=== PATIENT | male | born 1990 | race Caucasian/White ===

== ENCOUNTER 2018-04-29 11:09 | Inpatient (IN) | payer MEDICAID ==
[~2018-04-29] VITALS: Ht 167.6 cm; Wt 91.6 kg
[2018-04-29 12:58] LABS: BASOPHILS % (AUTO) 0.3 % (0.0-2.0); EOSINOPHILS % (AUTO) 0.6 % (1.0-6.0); HEMATOCRIT 44.6 % (41-53); HEMOGLOBIN 15.5 g/dL (13.5-17.5); LYMPHOCYTES # (AUTO) 1.2 K/uL (1.0-4.8); LYMPHOCYTES % (AUTO) 16.2 % (22.0-44.0); MEAN CORPUSCULAR HEMOGLOBIN 31.4 pg (26.0-34.0); MEAN CORPUSCULAR HGB CONC 34.7 G/dL (31.0-37.0); MEAN CORPUSCULAR VOLUME 91 fL (80-100); MONOCYTES # (AUTO) 0.4 K/uL (0.1-1.0); MONOCYTES % (AUTO) 5.5 % (2.0-9.0); NEUTROPHILS # (AUTO) 5.8 K/uL (1.8-7.7); NEUTROPHILS % (AUTO) 77.4 % (40.0-70.0); PLATELET COUNT (AUTO) 201 K/uL (150-450); RED BLOOD CELL COUNT(AUTO) 4.93 MIL/uL (4.50-5.90); RED CELL DISTRIBUTION WIDTH 12.9 % (11.5-14.5)
[2018-04-29 13:14] LABS: ANION GAP 11 mmol/L (8-16); CALCIUM, TOTAL 8.7 mg/dL (8.8-10.5); CARBON DIOXIDE 26 mmol/L (22-29); CHLORIDE 99 mmol/L (98-107); CREATININE 1.19 mg/dL (0.60-1.30); GLOMERULAR FILTR. RATE CALC > 60 mL/min (>60); GLUCOSE,RANDOM 72 mg/dL (70-110); POTASSIUM 3.7 mmol/L (3.5-5.1); SODIUM SERUM 136 mmol/L (136-145); UREA NITROGEN, BLOOD 10 mg/dL (7-18)
[2018-04-29 13:19] LABS: ALANINE AMINOTRANSFERASE 29 U/L (12-78); ALBUMIN 4.6 g/dL (3.4-5.0); ALKALINE PHOSPHATASE 75 U/L (46-116); ASPARTATE AMINOTRANSFERASE 16 U/L (15-37); BILIRUBIN,TOTAL 0.8 mg/dL (0.1-1.0); TOTAL PROTEIN, SERUM 8.5 g/dL (6.4-8.2)
[2018-04-29] MEDS ORDERED: ZOLPIDEM TARTRATE 10 MG TABLET PO PRN (13:45)
[2018-04-29] MEDS: LORazepam 2 MG TABLET PO PRN (15:20)
[2018-04-29] MEDS: HALOPERIDOL 5 MG TABLET PO PRN (15:20)
[2018-04-29 19:57] VITALS: BP 141/79
[2018-04-30 06:24] VITALS: BP 126/68
[2018-04-30 08:07] VITALS: BP 138/66
[2018-04-30 09:15] LABS: CHOL/HDL RATIO 4.8 (4.2-7.3); FREE T4 (FREE THYROXINE) 1.25 ng/dL (0.76-1.46); THYROID STIMULATING HORMONE 1.61 uIU/mL (0.36-3.74)
[2018-04-30] MEDS ORDERED: MAG HYDROX/AL HYDROX/SIMETH ES 30 ML SUSPENSION UDCUP PO PRN (11:15)
[2018-04-30] MEDS ORDERED: PETROLATUM,WHITE 71 GM JELLY TP PRN (11:15)
[2018-04-30] MEDS ORDERED: ACETAMINOPHEN 325 MG TABLET PO PRN (11:15)
[2018-04-30] MEDS ORDERED: MAGNESIUM HYDROXIDE SUSPENSION 30 ML UDCUP PO PRN (11:15)
[2018-04-30] MEDS ORDERED: DOCUSATE SODIUM 100 MG CAPSULE PO PRN (11:15)
[2018-04-30] MEDS ORDERED: ALBUTEROL SULFATE HFA 90 MCG/PUFF 8 GM INHALER IH PRN (11:15)
[2018-04-30] MEDS ORDERED: IBUPROFEN 400 MG TABLET PO PRN (11:15)
[2018-04-30 16:00] VITALS: BP 123/79
[2018-04-30] MEDS: LORazepam 2 MG TABLET PO PRN (16:56)
[2018-04-30] MEDS: HALOPERIDOL 5 MG TABLET PO PRN (16:56)
[2018-05-01 06:53] VITALS: BP 139/81
[2018-05-01 08:13] VITALS: BP 118/69
[2018-05-01 16:00] VITALS: BP 118/70
[2018-05-01] MEDS: LORazepam 2 MG TABLET PO PRN (17:19)
[2018-05-01] MEDS: HALOPERIDOL 5 MG TABLET PO PRN (17:19)
[2018-05-01] MEDS: ARIPiprazole 10 MG TABLET PO SCH (17:50)
[2018-05-02 06:41] VITALS: BP 113/70
[2018-05-02 08:17] VITALS: BP 136/80
[2018-05-02] MEDS: LORazepam 2 MG TABLET PO PRN (09:39)
[2018-05-02] MEDS: ARIPiprazole 10 MG TABLET PO SCH (09:39)
[2018-05-02] MEDS: HALOPERIDOL 5 MG TABLET PO PRN (09:39)
[2018-05-02 17:12] VITALS: BP 119/68
[2018-05-03 06:35] VITALS: BP 115/78
[2018-05-03 08:06] VITALS: BP 133/77
[2018-05-03] MEDS: ARIPiprazole 10 MG TABLET PO SCH (09:19)
[2018-05-03 16:00] VITALS: BP 138/86
[2018-05-03] MEDS: LORazepam 2 MG TABLET PO PRN (16:32)
[2018-05-04 06:32] VITALS: BP 138/88
[2018-05-04 08:41] VITALS: BP 144/84
[2018-05-04] MEDS: ARIPiprazole 10 MG TABLET PO SCH (09:13)
[2018-05-04] MEDS: LORazepam 2 MG TABLET PO PRN (09:13)
[2018-05-04] MEDS: HALOPERIDOL 5 MG TABLET PO PRN (11:05)
[2018-05-04] MEDS ORDERED: ARIP10TA8 PO (12:34)
== END 2018-05-04 13:30 | disposition home or self-care (01) | DRG 750 ==
LOC: EMS 11:10 → B3A 17:06
PROVIDERS: ADMIT Psychiatry & Neurology Psychiatry; ATTEND Psychiatry & Neurology Psychiatry
DX: F20.0 Paranoid schizophrenia (principal); E83.51 Hypocalcemia; I10 Essential (primary) hypertension; F79 Unspecified intellectual disabilities; R00.0 Tachycardia, unspecified; G47.00 Insomnia, unspecified; F41.9 Anxiety disorder, unspecified; Z79.899 Other long term (current) drug therapy; Z91.5 Personal history of self-harm; Z81.8 Family history of other mental and behavioral disorders
CPT/HCPCS: 84439; 84443; 99285; G0480

== ENCOUNTER 2018-05-10 16:13 | Inpatient (IN) | payer MEDICAID, OTHER ==
[~2018-05-10] VITALS: Ht 167.6 cm; Wt 92.0 kg
[~2018-05-10 16:13] MED LIST: ARIP10TA8 PO
[2018-05-10] MEDS ORDERED: HALOPERIDOL 5 MG TABLET PO ONE (17:30)
[2018-05-10 17:36] LABS: BASOPHILS % (AUTO) 0.5 % (0.0-2.0); EOSINOPHILS % (AUTO) 1.1 % (1.0-6.0); HEMATOCRIT 44.5 % (41-53); HEMOGLOBIN 15.4 g/dL (13.5-17.5); LYMPHOCYTES # (AUTO) 1.8 K/uL (1.0-4.8); LYMPHOCYTES % (AUTO) 22.6 % (22.0-44.0); MEAN CORPUSCULAR HEMOGLOBIN 31.1 pg (26.0-34.0); MEAN CORPUSCULAR HGB CONC 34.6 G/dL (31.0-37.0); MEAN CORPUSCULAR VOLUME 90 fL (80-100); MONOCYTES # (AUTO) 0.6 K/uL (0.1-1.0); MONOCYTES % (AUTO) 7.6 % (2.0-9.0); NEUTROPHILS # (AUTO) 5.3 K/uL (1.8-7.7); NEUTROPHILS % (AUTO) 68.2 % (40.0-70.0); PLATELET COUNT (AUTO) 210 K/uL (150-450); RED BLOOD CELL COUNT(AUTO) 4.94 MIL/uL (4.50-5.90)
[2018-05-10 17:46] LABS: ANION GAP 9 mmol/L (8-16); CALCIUM, TOTAL 9.3 mg/dL (8.8-10.5); CARBON DIOXIDE 25 mmol/L (22-29); CHLORIDE 103 mmol/L (98-107); GLOMERULAR FILTR. RATE CALC > 60 mL/min (>60); GLUCOSE,RANDOM 94 mg/dL (70-110); POTASSIUM 3.7 mmol/L (3.5-5.1); SODIUM SERUM 137 mmol/L (136-145); UREA NITROGEN, BLOOD 8 mg/dL (7-18)
[2018-05-10 18:01] LABS: ALANINE AMINOTRANSFERASE 42 U/L (12-78); ALBUMIN 4.4 g/dL (3.4-5.0); ALKALINE PHOSPHATASE 77 U/L (46-116); ASPARTATE AMINOTRANSFERASE 23 U/L (15-37); BILIRUBIN,TOTAL 0.3 mg/dL (0.1-1.0); TOTAL PROTEIN, SERUM 8.1 g/dL (6.4-8.2)
[2018-05-10 23:04] LABS: APPEARANCE,URINE CLEAR (CLEAR); BILIRUBIN,URINE NEGATIVE (NEGATIVE); GLUCOSE, URINE (UA) NEGATIVE (NEGATIVE); KETONES,URINE NEGATIVE (NEGATIVE); LEUKOCYTE ESTERASE ,URINE NEGATIVE (NEGATIVE); NITRATE,URINE NEGATIVE (NEGATIVE); OCCULT BLOOD,URINE NEGATIVE (NEGATIVE); PH,URINE 6.5 (5.0-8.0); PROTEIN,URINE NEGATIVE (NEGATIVE); UROBILINOGEN,URINE 0.2 mg/dL (<=1.0)
[2018-05-10 23:09] LABS: AMPHET/METH SCREEN,URINE NEGATIVE (NEGATIVE); BARBITURATE SCREEN, URINE NEGATIVE (NEGATIVE); BENZODIAZEPINES SCREEN,URINE NEGATIVE (NEGATIVE); CANNABINOID SCREEN,URINE NEGATIVE (NEGATIVE); COCAINE SCREEN,URINE NEGATIVE (NEGATIVE); METHADONE SCREEN, URINE NEGATIVE (NEGATIVE); OPIATE SCREEN,URINE NEGATIVE (NEGATIVE)
[2018-05-10 23:10] LABS: PHENCYCLIDINE SCREEN,URINE NEGATIVE (NEGATIVE)
[2018-05-11] MEDS: ZOLPIDEM TARTRATE 10 MG TABLET PO PRN ×2 (00:48→20:49)
[2018-05-11] MEDS: LORazepam 2 MG TABLET PO PRN ×2 (00:48→14:52)
[2018-05-11 02:14] VITALS: BP 154/99
[2018-05-11] MEDS ORDERED: CloNIDine HCL 0.1 MG TABLET PO PRN (02:15)
[2018-05-11 08:09] VITALS: BP 139/86
[2018-05-11] MEDS: ARIPiprazole 10 MG TABLET PO SCH (11:12)
[2018-05-11] MEDS ORDERED: DOCUSATE SODIUM 100 MG CAPSULE PO PRN (11:30)
[2018-05-11] MEDS ORDERED: ALBUTEROL SULFATE HFA 90 MCG/PUFF 8 GM INHALER IH PRN (11:30)
[2018-05-11] MEDS ORDERED: LOPERAMIDE HCL 2 MG CAPSULE PO PRN (11:30)
[2018-05-11] MEDS ORDERED: MAG HYDROX/AL HYDROX/SIMETH ES 30 ML SUSPENSION UDCUP PO PRN (11:30)
[2018-05-11] MEDS ORDERED: PETROLATUM,WHITE 71 GM JELLY TP PRN (11:30)
[2018-05-11] MEDS ORDERED: ONDANSETRON HCL 4 MG TABLET PO PRN (11:30)
[2018-05-11] MEDS ORDERED: MAGNESIUM HYDROXIDE SUSPENSION 30 ML UDCUP PO PRN (11:30)
[2018-05-11 16:00] VITALS: BP 113/67
[2018-05-12 01:55] VITALS: BP 136/76
[2018-05-12] MEDS: LORazepam 2 MG TABLET PO PRN ×3 (01:58→14:29)
[2018-05-12 08:10] VITALS: BP 141/71
[2018-05-12] MEDS: ARIPiprazole 10 MG TABLET PO SCH (08:22)
[2018-05-12] MEDS: NICOTINE 14 MG/24 HOUR PATCH TD SCH (08:25)
[2018-05-12 09:05] LABS: HEMOGLOBIN A1C 5.6 % (4.5-6.2)
[2018-05-12 09:19] LABS: CHOL/HDL RATIO 3.7 (4.2-7.3); THYROID STIMULATING HORMONE 1.98 uIU/mL (0.36-3.74)
[2018-05-12 16:00] VITALS: BP 123/65
[2018-05-12] MEDS: ZOLPIDEM TARTRATE 10 MG TABLET PO PRN (20:18)
[2018-05-13 01:06] VITALS: BP 133/93
[2018-05-13 08:00] VITALS: BP 150/79
[2018-05-13] MEDS: IBUPROFEN 400 MG TABLET PO PRN (08:21)
[2018-05-13] MEDS: ARIPiprazole 10 MG TABLET PO SCH (08:21)
[2018-05-13] MEDS: NICOTINE 14 MG/24 HOUR PATCH TD SCH (08:22)
[2018-05-13 09:23] VITALS: BP 136/90
[2018-05-13] MEDS: LORazepam 2 MG TABLET PO PRN ×3 (10:26→21:17)
[2018-05-13 16:00] VITALS: BP 136/64
[2018-05-13] MEDS: HALOPERIDOL 5 MG TABLET PO PRN (16:34)
[2018-05-13] MEDS: ZOLPIDEM TARTRATE 10 MG TABLET PO PRN (21:17)
[2018-05-14 01:34] VITALS: BP 138/86
[2018-05-14] MEDS: HALOPERIDOL 5 MG TABLET PO PRN (05:17)
[2018-05-14] MEDS: LORazepam 2 MG TABLET PO PRN ×3 (05:17→20:56)
[2018-05-14 08:09] VITALS: BP 138/80
[2018-05-14] MEDS: NICOTINE 14 MG/24 HOUR PATCH TD SCH (08:29)
[2018-05-14] MEDS: ARIPiprazole 10 MG TABLET PO SCH (08:29)
[2018-05-14 16:00] VITALS: BP 126/66
[2018-05-14] MEDS: ZOLPIDEM TARTRATE 10 MG TABLET PO PRN (20:56)
[2018-05-15 03:21] VITALS: BP 119/84
[2018-05-15] MEDS: LORazepam 2 MG TABLET PO PRN ×2 (03:31→17:19)
[2018-05-15] MEDS: ACETAMINOPHEN 325 MG TABLET PO PRN (03:32)
[2018-05-15] MEDS: HALOPERIDOL 5 MG TABLET PO PRN (03:49)
[2018-05-15 08:08] VITALS: BP 136/82
[2018-05-15] MEDS: NICOTINE 14 MG/24 HOUR PATCH TD SCH (08:42)
[2018-05-15] MEDS: ARIPiprazole 10 MG TABLET PO SCH (08:42)
[2018-05-15 12:43] VITALS: BP 134/80
[2018-05-15] MEDS: IBUPROFEN 400 MG TABLET PO PRN (12:43)
[2018-05-15 13:43] VITALS: BP 128/78
[2018-05-15 16:00] VITALS: BP 123/72
[2018-05-15] MEDS: ZOLPIDEM TARTRATE 10 MG TABLET PO PRN (21:32)
[2018-05-16] MEDS: LORazepam 2 MG TABLET PO PRN ×3 (00:12→18:37)
[2018-05-16 00:25] VITALS: BP 128/77
[2018-05-16] MEDS: HALOPERIDOL 5 MG TABLET PO PRN ×2 (01:50→18:37)
[2018-05-16] MEDS: ACETAMINOPHEN 325 MG TABLET PO PRN (03:13)
[2018-05-16 08:09] VITALS: BP 134/74
[2018-05-16] MEDS: NICOTINE 14 MG/24 HOUR PATCH TD SCH (09:00)
[2018-05-16] MEDS: ARIPiprazole 10 MG TABLET PO SCH (09:33)
[2018-05-16 16:00] VITALS: BP 144/86
[2018-05-16] MEDS: ZOLPIDEM TARTRATE 10 MG TABLET PO PRN (21:20)
[2018-05-17 00:05] VITALS: BP 154/90
[2018-05-17 00:35] VITALS: BP 122/73
[2018-05-17] MEDS: LORazepam 2 MG TABLET PO PRN ×2 (04:46→16:39)
[2018-05-17 08:13] VITALS: BP 138/82
[2018-05-17] MEDS: NICOTINE 14 MG/24 HOUR PATCH TD SCH (09:00)
[2018-05-17] MEDS ORDERED: ARIPiprazole 10 MG TABLET PO ONE (09:15)
[2018-05-17 16:00] VITALS: BP 133/70
[2018-05-17] MEDS: ARIPiprazole 10 MG TABLET PO SCH (16:17)
[2018-05-17] MEDS: HALOPERIDOL 5 MG TABLET PO PRN (16:39)
[2018-05-17] MEDS: ZOLPIDEM TARTRATE 10 MG TABLET PO PRN (21:15)
[2018-05-18] MEDS: LORazepam 2 MG TABLET PO PRN ×2 (02:38→11:01)
[2018-05-18 02:51] VITALS: BP 112/78
[2018-05-18] MEDS: HALOPERIDOL 5 MG TABLET PO PRN (04:27)
[2018-05-18 08:45] VITALS: BP 145/71
[2018-05-18] MEDS: NICOTINE 14 MG/24 HOUR PATCH TD SCH (09:00)
[2018-05-18] MEDS: ARIPiprazole 10 MG TABLET PO SCH ×2 (11:01→16:34)
[2018-05-18] MEDS: ACETAMINOPHEN 325 MG TABLET PO PRN (11:01)
== END 2018-05-18 16:50 | disposition home or self-care (01) | DRG 750 ==
LOC: EMS 16:14 → B3A 22:30
PROVIDERS: ADMIT Psychiatry & Neurology Psychiatry; ATTEND Psychiatry & Neurology Psychiatry
DX: F20.0 Paranoid schizophrenia (principal); F79 Unspecified intellectual disabilities; I10 Essential (primary) hypertension; K59.00 Constipation, unspecified; F41.9 Anxiety disorder, unspecified
CPT/HCPCS: 83036; 84443; 87081; 99285; G0480

== ENCOUNTER 2018-10-16 07:50 | Inpatient (IN) | payer MEDICAID, OTHER ==
[~2018-10-16] VITALS: Ht 167.6 cm; Wt 94.8 kg
[2018-10-16 09:59] LABS: BASOPHILS % (AUTO) 0.5 % (0.0-2.0); EOSINOPHILS % (AUTO) 0.6 % (1.0-6.0); HEMATOCRIT 47.4 % (41-53); HEMOGLOBIN 16.2 g/dL (13.5-17.5); LYMPHOCYTES # (AUTO) 1.6 K/uL (1.0-4.8); LYMPHOCYTES % (AUTO) 24.4 % (22.0-44.0); MEAN CORPUSCULAR HEMOGLOBIN 30.9 pg (26.0-34.0); MEAN CORPUSCULAR HGB CONC 34.1 G/dL (31.0-37.0); MEAN CORPUSCULAR VOLUME 91 fL (80-100); MONOCYTES # (AUTO) 0.5 K/uL (0.1-1.0); MONOCYTES % (AUTO) 6.9 % (2.0-9.0); NEUTROPHILS # (AUTO) 4.4 K/uL (1.8-7.7); NEUTROPHILS % (AUTO) 67.6 % (40.0-70.0); PLATELET COUNT (AUTO) 205 K/uL (150-450); RED BLOOD CELL COUNT(AUTO) 5.23 MIL/uL (4.50-5.90); RED CELL DISTRIBUTION WIDTH 12.8 % (11.5-14.5)
[2018-10-16 10:08] LABS: ANION GAP 13 mmol/L (8-16); CARBON DIOXIDE 27 mmol/L (22-29); CHLORIDE 100 mmol/L (98-107); CREATININE 1.01 mg/dL (0.60-1.30); GLOMERULAR FILTR. RATE CALC > 60 mL/min (>60); GLUCOSE,RANDOM 77 mg/dL (70-110); POTASSIUM 3.9 mmol/L (3.5-5.1); SODIUM SERUM 140 mmol/L (136-145); UREA NITROGEN, BLOOD 10 mg/dL (7-18)
[2018-10-16 10:14] LABS: ALANINE AMINOTRANSFERASE 38 U/L (12-78); ALBUMIN 4.5 g/dL (3.4-5.0); ALKALINE PHOSPHATASE 66 U/L (46-116); ASPARTATE AMINOTRANSFERASE 21 U/L (15-37); BILIRUBIN,TOTAL 0.7 mg/dL (0.1-1.0); TOTAL PROTEIN, SERUM 8.3 g/dL (6.4-8.2)
[2018-10-16] MEDS ORDERED: HALOPERIDOL 5 MG TABLET PO PRN (11:30)
[2018-10-16] MEDS ORDERED: HydrOXYzine HCL 25 MG TABLET PO ONE (11:30)
[2018-10-16] MEDS ORDERED: LORazepam 2 MG TABLET PO PRN (11:30)
[2018-10-16 15:44] VITALS: BP 145/88
[2018-10-16] MEDS ORDERED: LOPERAMIDE HCL 2 MG CAPSULE PO PRN (15:45)
[2018-10-16] MEDS ORDERED: MAGNESIUM HYDROXIDE SUSPENSION 30 ML UDCUP PO PRN (15:45)
[2018-10-16] MEDS ORDERED: CloNIDine HCL 0.1 MG TABLET PO PRN (15:45)
[2018-10-16] MEDS ORDERED: MAG HYDROX/AL HYDROX/SIMETH ES 30 ML SUSPENSION UDCUP PO PRN (15:45)
[2018-10-16] MEDS ORDERED: ALBUTEROL SULFATE HFA 90 MCG/PUFF 8 GM INHALER IH PRN (15:45)
[2018-10-16] MEDS ORDERED: ONDANSETRON HCL 4 MG TABLET PO PRN (15:45)
[2018-10-16] MEDS ORDERED: IBUPROFEN 400 MG TABLET PO PRN (15:45)
[2018-10-16] MEDS ORDERED: PETROLATUM,WHITE 71 GM JELLY TP PRN (15:45)
[2018-10-16] MEDS ORDERED: NICOTINE 14 MG/24 HOUR PATCH TD PRN (15:45)
[2018-10-16] MEDS ORDERED: ACETAMINOPHEN 325 MG TABLET PO PRN (15:45)
[2018-10-16] MEDS ORDERED: GuaiFENesin/D-METHORPHAN [SUGAR-FREE] 200-20MG/10 ML SYRUP UDCUP PO PRN (15:45)
[2018-10-16] MEDS ORDERED: DOCUSATE SODIUM 100 MG CAPSULE PO PRN (15:45)
[2018-10-16 16:00] VITALS: BP 123/94
[2018-10-16] MEDS: ZOLPIDEM TARTRATE 10 MG TABLET PO PRN (21:28)
[2018-10-17 00:20] VITALS: BP 120/73
[2018-10-17 08:20] VITALS: BP 132/72
[2018-10-17 08:25] LABS: BASOPHILS % (AUTO) 0.4 % (0.0-2.0); EOSINOPHILS % (AUTO) 0.8 % (1.0-6.0); HEMATOCRIT 45.6 % (41-53); HEMOGLOBIN 15.9 g/dL (13.5-17.5); LYMPHOCYTES # (AUTO) 1.6 K/uL (1.0-4.8); LYMPHOCYTES % (AUTO) 30.1 % (22.0-44.0); MEAN CORPUSCULAR HEMOGLOBIN 31.8 pg (26.0-34.0); MEAN CORPUSCULAR HGB CONC 34.9 G/dL (31.0-37.0); MEAN CORPUSCULAR VOLUME 91 fL (80-100); MONOCYTES # (AUTO) 0.4 K/uL (0.1-1.0); MONOCYTES % (AUTO) 6.9 % (2.0-9.0); NEUTROPHILS # (AUTO) 3.3 K/uL (1.8-7.7); NEUTROPHILS % (AUTO) 61.8 % (40.0-70.0); PLATELET COUNT (AUTO) 198 K/uL (150-450)
[2018-10-17 08:30] LABS: HEMOGLOBIN A1C 5.4 % (4.5-6.2)
[2018-10-17 08:58] LABS: ALANINE AMINOTRANSFERASE 38 U/L (12-78); ALBUMIN 4.5 g/dL (3.4-5.0); ALKALINE PHOSPHATASE 61 U/L (46-116); ANION GAP 8 mmol/L (8-16); ASPARTATE AMINOTRANSFERASE 25 U/L (15-37); BILIRUBIN,TOTAL 0.6 mg/dL (0.1-1.0); CALCIUM, TOTAL 8.7 mg/dL (8.8-10.5); CARBON DIOXIDE 30 mmol/L (22-29); CHLORIDE 101 mmol/L (98-107); CHOL/HDL RATIO 4.3 (4.2-7.3); CHOLESTEROL 149 mg/dL (131-200); CREATININE 1.21 mg/dL (0.60-1.30); GLOMERULAR FILTR. RATE CALC > 60 mL/min (>60); GLUCOSE,RANDOM 82 mg/dL (70-110); HDL CHOLESTEROL 35 mg/dL (40-60); POTASSIUM 4.4 mmol/L (3.5-5.1); SODIUM SERUM 139 mmol/L (136-145); TOTAL PROTEIN, SERUM 8.3 g/dL (6.4-8.2); TRIGLYCERIDES 61 mg/dL (15-150); UREA NITROGEN, BLOOD 12 mg/dL (7-18)
[2018-10-17 08:59] LABS: LDL CHOL (CALC.) 102 mg/dL (0-130); THYROID STIMULATING HORMONE 0.98 uIU/mL (0.36-3.74)
[2018-10-17] MEDS: ARIPiprazole 10 MG TABLET PO SCH (12:02)
[2018-10-17 16:24] VITALS: BP 123/69
[2018-10-17] MEDS: ZOLPIDEM TARTRATE 10 MG TABLET PO PRN (21:38)
[2018-10-18 00:37] VITALS: BP 137/89
[2018-10-18 08:32] VITALS: BP 115/65
[2018-10-18] MEDS: ARIPiprazole 10 MG TABLET PO SCH (09:31)
[2018-10-18 16:35] VITALS: BP 116/66
[2018-10-18] MEDS: ZOLPIDEM TARTRATE 10 MG TABLET PO PRN (20:51)
[2018-10-19 03:50] VITALS: BP 138/71
[2018-10-19] MEDS: ARIPiprazole 10 MG TABLET PO SCH (08:43)
[2018-10-19 08:47] VITALS: BP 124/77
[2018-10-19] MEDS ORDERED: ARIP10TA8 PO (09:53)
== END 2018-10-19 13:15 | disposition home or self-care (01) | DRG 750 ==
LOC: EMS 07:50 → B2S 12:46 → EMS 13:38
DX: F20.0 Paranoid schizophrenia (principal); R45.851 Suicidal ideations; G47.00 Insomnia, unspecified; Z79.899 Other long term (current) drug therapy; Z91.5 Personal history of self-harm; Z23 Encounter for immunization
CPT/HCPCS: 83036; 84443; 90686; G0480

== ENCOUNTER 2018-10-31 12:00 | Emergency (ER) | payer MEDICAID, OTHER ==
[~2018-10-31] VITALS: Ht 162.6 cm; Wt 100.0 kg
[2018-10-31] MEDS ORDERED: ARIP300S3 IM (13:03)
[2018-10-31 13:54] LABS: BASOPHILS % (AUTO) 0.5 % (0.0-2.0); EOSINOPHILS % (AUTO) 1.1 % (1.0-6.0); HEMATOCRIT 48.4 % (41-53); HEMOGLOBIN 16.6 g/dL (13.5-17.5); LYMPHOCYTES # (AUTO) 2.2 K/uL (1.0-4.8); LYMPHOCYTES % (AUTO) 30.4 % (22.0-44.0); MEAN CORPUSCULAR HEMOGLOBIN 31.3 pg (26.0-34.0); MEAN CORPUSCULAR HGB CONC 34.3 G/dL (31.0-37.0); MEAN CORPUSCULAR VOLUME 91 fL (80-100); MONOCYTES # (AUTO) 0.6 K/uL (0.1-1.0); MONOCYTES % (AUTO) 8.1 % (2.0-9.0); NEUTROPHILS # (AUTO) 4.3 K/uL (1.8-7.7); NEUTROPHILS % (AUTO) 59.9 % (40.0-70.0); PLATELET COUNT (AUTO) 232 K/uL (150-450); RED CELL DISTRIBUTION WIDTH 12.8 % (11.5-14.5)
[2018-10-31 14:14] LABS: ANION GAP 11 mmol/L (8-16); CALCIUM, TOTAL 9.3 mg/dL (8.8-10.5); CARBON DIOXIDE 28 mmol/L (22-29); CHLORIDE 100 mmol/L (98-107); CREATININE 1.23 mg/dL (0.60-1.30); GLOMERULAR FILTR. RATE CALC > 60 mL/min (>60); GLUCOSE,RANDOM 115 mg/dL (70-110); POTASSIUM 3.7 mmol/L (3.5-5.1); SODIUM SERUM 139 mmol/L (136-145); UREA NITROGEN, BLOOD 11 mg/dL (7-18)
[2018-10-31 14:20] LABS: ALANINE AMINOTRANSFERASE 40 U/L (12-78); ALBUMIN 4.4 g/dL (3.4-5.0); ALKALINE PHOSPHATASE 71 U/L (46-116); ASPARTATE AMINOTRANSFERASE 17 U/L (15-37); BILIRUBIN,TOTAL 0.4 mg/dL (0.1-1.0); TOTAL PROTEIN, SERUM 8.6 g/dL (6.4-8.2)
[2018-10-31 16:10] VITALS: BP 126/71
== END 2018-10-31 16:49 | disposition home or self-care (01) ==
LOC: EMS 12:02
DX: F32.9 Major depressive disorder, single episode, unspecified (principal); F20.9 Schizophrenia, unspecified
CPT/HCPCS: 36415; 80053; 85025; 99285; G0480